=== PATIENT | male | born 1940 | race Caucasian/White ===

== ENCOUNTER 2021-05-08 11:48 | Emergency (ER) | payer BC, MEDICARE, OTHER ==
[2021-05-08] MEDS ORDERED: Aspirin 81 MG Tab.Chew PO ONE (12:08)
[2021-05-08] MEDS ORDERED: Aspirin 81 MG Tab.Chew ONE (12:11)
--- NOTE | 2021-05-08 12:13 | EDM.PDOC ---
ED HPI GENERAL MEDICAL PROBLEM - General Chief Complaint: Chest Pain Stated Complaint: CHEST PAIN Time Seen by Provider: 05/08/21 12:09 Source of Information: Reports: Patient History Limitations: Reports: No Limitations - History of Present Illness INITIAL COMMENTS - FREE TEXT/NARRATIVE: pt has no cardiac history. He developed chest pain about 1.5 hours ago. He is rating the pain at a 7-8. He was alittle sweaty but he was outside working also. he has a history of reflux and barrets esophagus. He was slightly sob. Onset: Today, Sudden Duration: Hour(s): Location: Reports: Chest Associated Symptoms: Reports: Chest Pain, Diaphoresis, Shortness of Breath - Related Data Allergies Allergy/AdvReac Type Severity Reaction Status Date / Time morphine Allergy Hives Verified 05/08/21 12:02 Home Meds: Home Meds Lisinopril 10 mg PO DAILY 10/16/16 [History] Omeprazole 40 mg PO DAILY 10/16/16 [History] Aspirin 325 mg PO ASDIRECTED 05/08/21 [History] Finasteride 5 mg PO DAILY 05/08/21 [History] Past Medical History HEENT History: Reports: Impaired Vision Cardiovascular History: Reports: Hypertension Gastrointestinal History: Reports: None - Past Surgical History Head Surgeries/Procedures: Reports: None Cardiovascular Surgical History: Reports: None GI Surgical History: Reports: Cholecystectomy, Hernia, Inguinal Dermatological Surgical History: Reports: None Social & Family History - Tobacco Use Tobacco Use Status *Q: Never Tobacco User Second Hand Smoke Exposure: No - Caffeine Use Caffeine Use: Reports: Coffee - Recreational Drug Use Recreational Drug Use: No ED ROS GENERAL - Review of Systems Review Of Systems: See Below Constitutional: Reports: No Symptoms HEENT: Reports: No Symptoms Respiratory: Reports: Shortness of Breath Cardiovascular: Reports: Chest Pain Endocrine: Reports: No Symptoms GI/Abdominal: Reports: No Symptoms : Reports: No Symptoms Musculoskeletal: Reports: No Symptoms Skin: Reports: No Symptoms ED EXAM, GENERAL - Physical Exam Exam: See Below Free Text/Narrative:: pt is alert and is having pain in the chest which he rates at a 7-8. Exam Limited By: No Limitations General Appearance: Alert, Anxious, Moderate Distress Ears: Normal TMs Nose: Normal Inspection Throat/Mouth: Normal Inspection Head: Atraumatic Neck: Normal Inspection Respiratory/Chest: No Respiratory Distress Cardiovascular: Regular Rate, Rhythm, Other (pt is having some ventriculars. ) GI/Abdominal: Soft, Non-Tender (Male) Exam: Deferred Rectal (Males) Exam: Deferred Back Exam: Normal Inspection Extremities: Normal Inspection Neurological: Alert, Oriented, Normal Cognition Psychiatric: Anxious Course - Vital Signs Last Recorded V/S: Last Vital Signs Temp 36.6 C 05/08/21 12:04 Pulse 74 05/08/21 13:00 Resp 12 05/08/21 13:00 BP 142/80 H 05/08/21 13:00 Pulse Ox 97 05/08/21 13:00 - Orders/Labs/Meds Labs: Laboratory Tests 05/08/21 05/08/21 05/08/21 Range/Units 12:08 12:08 12:08 WBC 10.9 (4.5-11.0) K/uL RBC 4.95 (4.30-5.90) M/uL Hgb 14.7 (12.0-15.0) g/dL Hct 41.9 (40.0-54.0) % MCV 85 (80-98) fL MCH 30 (27-31) pg MCHC 35 (32-36) % Plt Count 257 (150-400) K/uL Neut % (Auto) 56.7 (36-66) % Lymph % (Auto) 32.3 (24-44) % Dundy % (Auto) 8.0 H (2-6) % Eos % (Auto) 2.2 (2-4) % Baso % (Auto) 0.8 (0-1) % APTT (27.0-36.0) sec Sodium 138 L (140-148) mmol/L Potassium 4.0 (3.6-5.2) mmol/L Chloride 99 L (100-108) mmol/L Carbon Dioxide 25 (21-32) mmol/L Anion Gap 18.0 H (5.0-14.0) mmol/L BUN 12 (7-18) mg/dL Creatinine 1.0 (0.8-1.3) mg/dL Est Cr Clr Drug Dosing 60.83 mL/min Estimated GFR (MDRD) > 60 (>60) Glucose 107 H (74-106) mg/dL Calcium 8.3 L (8.5-10.1) mg/dL Total Bilirubin 0.4 (0.2-1.0) mg/dL AST 19 (15-37) U/L ALT 28 (12-78) U/L Alkaline Phosphatase 72 (46-116) U/L Troponin I < 0.017 (0.000-0.056) ng/mL Total Protein 7.1 (6.4-8.2) g/dL Albumin 3.5 (3.4-5.0) g/dL Globulin 3.6 H (2.3-3.5) g/dL Albumin/Globulin Ratio 1.0 L (1.2-2.2) 05/08/21 Range/Units 12:36 WBC (4.5-11.0) K/uL RBC (4.30-5.90) M/uL Hgb (12.0-15.0) g/dL Hct (40.0-54.0) % MCV (80-98) fL MCH (27-31) pg MCHC (32-36) % Plt Count (150-400) K/uL Neut % (Auto) (36-66) % Lymph % (Auto) (24-44) % Dundy % (Auto) (2-6) % Eos % (Auto) (2-4) % Baso % (Auto) (0-1) % APTT 24.7 L (27.0-36.0) sec Sodium (140-148) mmol/L Potassium (3.6-5.2) mmol/L Chloride (100-108) mmol/L Carbon Dioxide (21-32) mmol/L Anion Gap (5.0-14.0) mmol/L BUN (7-18) mg/dL Creatinine (0.8-1.3) mg/dL Est Cr Clr Drug Dosing mL/min Estimated GFR (MDRD) (>60) Glucose (74-106) mg/dL Calcium (8.5-10.1) mg/dL Total Bilirubin (0.2-1.0) mg/dL AST (15-37) U/L ALT (12-78) U/L Alkaline Phosphatase (46-116) U/L Troponin I (0.000-0.056) ng/mL Total Protein (6.4-8.2) g/dL Albumin (3.4-5.0) g/dL Globulin (2.3-3.5) g/dL Albumin/Globulin Ratio (1.2-2.2) Meds: Medications Discontinued Medications Generic Name Dose Route Start Last Admin Trade Name Anusha PRN Reason Stop Dose Admin Aspirin 324 mg 05/08/21 12:08 05/08/21 12:13 Aspirin 81 Mg Tab.Chew PO 05/08/21 12:09 324 mg ONETIME ONE Administration Aspirin Confirm 05/08/21 12:11 05/08/21 12:22 Aspirin 81 Mg Tab.Chew Administered 05/08/21 12:12 Not Given Dose 486 mg .ROUTE .STK-MED ONE Clopidogrel Bisulfate 600 mg 05/08/21 12:54 05/08/21 12:58 Clopidogrel 75 Mg Tab PO 05/08/21 12:55 600 mg ONETIME ONE Administration Heparin Sodium (Porcine) 4,000 units 05/08/21 12:49 05/08/21 13:18 Heparin Sodium 5,000 Units/Ml Vial IVPUSH 05/08/21 12:50 4,000 units ONETIME ONE Administration Hydromorphone HCl 0.5 mg 05/08/21 12:48 05/08/21 12:55 Hydromorphone 0.5 Mg/0.5 Ml Syringe IVPUSH 05/08/21 12:49 0.5 mg ONETIME ONE Administration Hydromorphone HCl Confirm 05/08/21 12:51 05/08/21 12:58 Hydromorphone 0.5 Mg/0.5 Ml Syringe Administered 05/08/21 12:52 Not Given Dose 0.5 mg .ROUTE .STK-MED ONE Sodium Chloride 1,000 mls @ 200 mls/hr 05/08/21 13:30 Normal Saline IV ASDIRECTED RICARDO Nitroglycerin 0.4 mg 05/08/21 12:09 05/08/21 12:20 Nitroglycerin 0.4 Mg Tab.Sl SL 0.4 mg Q5M PRN Administration Chest Pain Ondansetron HCl 4 mg 05/08/21 12:50 05/08/21 12:58 Ondansetron 4 Mg/2 Ml Sdv IVPUSH 05/08/21 12:51 4 mg ONETIME ONE Administration - Re-Assessments/Exams Free Text/Narrative Re-Assessment/Exam: 05/08/21 12:45 pt has a normal trop. His second ekg shows a definite antlateral infarct. Departure - Departure Time of Disposition: 12:59 Disposition: DC/Tfer to Acute Hospital 02 Reason for Transfer *Q: Primary PCI Indicated Condition: Fair Clinical Impression: Acute anterior myocardial infarction Referrals: Brijesh Hightower MD [Primary Care Provider] - Forms: ED Department Discharge Care Plan Goals: transfer to [facility]-- Dr gómez Sepsis Event Note (ED) - Evaluation Sepsis Screening Result: No Definite Risk
[2021-05-08] MEDS: Nitroglycerin 0.4 MG Tab.SL SL PRN ×2 (12:15→12:20)
[2021-05-08] MEDS ORDERED: HYDROmorphone 0.5 MG/0.5 ML Syringe IVPUSH ONE (12:48)
[2021-05-08] MEDS ORDERED: Heparin Sodium 5,000 Units/ML Vial IVPUSH ONE (12:49)
[2021-05-08] MEDS ORDERED: Ondansetron 4 MG/2 ML SDV IVPUSH ONE (12:50)
[2021-05-08] MEDS ORDERED: HYDROmorphone 0.5 MG/0.5 ML Syringe ONE (12:51)
[2021-05-08] MEDS ORDERED: Clopidogrel 75 MG Tab PO ONE (12:54)
--- NOTE | 2021-05-08 13:22 | CR ---
CHEST: Portable 05/08/2021 at 12:27 PM CLINICAL HISTORY:Chest pain COMPARISON:None FINDINGS: The heart size, pulmonary vascularity and hilar structures are normal. No infiltrate effusion or pneumothorax is seen. There are atherosclerotic changes in the aorta. There is a hiatal hernia. IMPRESSION: No acute cardiopulmonary process.
[2021-05-08 13:23] VITALS: BP 142/80; PULSE 74
[2021-05-08] MEDS ORDERED: Sodium Chloride 0.9% 1,000 ML IV SCH (13:30)
== END 2021-05-08 13:15 ==
LOC: JP.ED 11:48
DX: I21.9 Acute myocardial infarction, unspecified (principal); I10 Essential (primary) hypertension; Z88.5 Allergy status to narcotic agent; Z79.82 Long term (current) use of aspirin; Z79.899 Other long term (current) drug therapy
CPT/HCPCS: 36415; 71045; 80053; 84484; 85025; 85730; 93005; 96374; 96375; 99285; A9270; J1170; J1644; J2405